=== PATIENT | female | born 1950 | race Caucasian/White ===

== ENCOUNTER 2018-04-14 19:21 | Emergency (ER) | payer OTHER, BC ==
[~2018-04-14] VITALS: Ht 167.6 cm; Wt 63.0 kg
[2018-04-14 19:34] VITALS: Ht 167.6 cm; Wt 63.0 kg
[2018-04-14 21:58] VITALS: BP 145/59
== END 2018-04-14 21:58 | disposition home or self-care (01) ==
LOC: ED 19:21
DX: S93.402A Sprain of unspecified ligament of left ankle, initial encounter (principal); Z88.0 Allergy status to penicillin; W10.8XXA Fall (on) (from) other stairs and steps, initial encounter; Y93.89 Activity, other specified; Y92.89 Other specified places as the place of occurrence of the external cause; Y99.8 Other external cause status